=== PATIENT | female | born 1990 | race Caucasian/White ===

== ENCOUNTER 2018-12-07 09:40 | Emergency (ER) | payer MEDICAID ==
[~2018-12-07] VITALS: Wt 78.9 kg
[~2018-12-07 09:40] MED LIST: IBUP200C11
[2018-12-07 09:43] VITALS: BP 130/78; PULSE 81; RESP 18
[2018-12-07] MEDS ORDERED: KETOROLAC 60 MG INJ IM STA (10:33)
--- NOTE | 2018-12-07 10:44 | ERD ---
ER Documentation Chief Complaint Chief Complaint mcclain x 2 days HPI 28-year-old female year-old coming in today with Chief Complaint: Headache History of Present Illness: Patient coming in today with complaint of headache that started 2 days ago. Patient reporting gradual onset. Quality is pressure. Nonradiating. Severity 6/10. At home use of medications include acetaminophen; last dose 2 days ago. Associated symptoms include photophobia. Patient awake and alert and speaking clear sentences, answering questions appropriately without difficulty. Social History: Patient denies tobacco, alcohol, elicit drug use ROS All systems reviewed and are negative except as per history of present illness. Medications Home Meds Active Scripts Acetaminophen* (Tylenol*) 325 Mg Tablet, 2 TAB PO Q8 PRN for PAIN AND OR ELEVATED TEMP, #20 TAB Prov:ASAD BARAHONA NP 12/07/18 Acetaminophen/Aspirin/Caffeine* (Excedrin*) 1 Tab Tab, 2 TAB PO DAILY for headache, #30 TAB Prov:ASAD BARAHONA NP 12/07/18 Nitrofurantoin Monohyd Macrocr* (Macrobid*) 100 Mg Capsr, 100 MG PO BID for urine infection for 5 Days, CAP Prov:ASAD BARAHONA NP 12/07/18 Reported Medications Ibuprofen* (Advil*) 200 Mg Capsule 07/27/10 Allergies Allergies: Coded Allergies: No Known Drug Allergies (Verified Allergy, Mild, 07/27/10) PMhx/Soc History of Surgery: Yes () Anesthesia Reaction: No Hx Neurological Disorder: No Hx Respiratory Disorders: No Hx Cardiac Disorders: No Hx Psychiatric Problems: No Hx Miscellaneous Medical Probl: No Hx Alcohol Use: No Hx Substance Use: No Hx Tobacco Use: No Smoking Status: Never smoker FmHx Family History: coronary disease; No diabetes Physical Exam Vitals Vital Signs Date Temp Pulse Resp B/P (MAP) Pulse Ox O2 O2 Flow FiO2 Time Delivery Rate 12/07/18 98.1 81 18 130/78 99 09:43 (95) Physical Exam Const: No acute distress Head: Atraumatic Eyes: Normal Conjunctiva ENT: Normal External Ears, Nose and Mouth. Neck: Full range of motion. No meningismus. Resp: Clear to auscultation bilaterally Cardio: Regular rate and rhythm, no murmurs Abd: Soft, non tender, non distended. Normal bowel sounds Skin: No petechiae or rashes Back: No midline or flank tenderness Ext: No cyanosis, or edema Neur: Awake and alert, patient speaking in clear sentences, neuro exam unremarkable Psych: Normal Mood and Affect Results 24 hrs Laboratory Tests Test 12/07/18 10:40 12/07/18 10:43 Urine Color YELLOW Urine Clarity CLOUDY Urine pH 6.0 Urine Specific [place] 1.021 Urine Ketones NEGATIVE mg/dL Urine Nitrite NEGATIVE mg/dL Urine Bilirubin NEGATIVE mg/dL Urine Urobilinogen 1+ mg/dL Urine Leukocyte Esterase TRACE Saira/ul Urine Microscopic RBC 4 /HPF Urine Microscopic WBC 6 /HPF Urine Squamous Epithelial Cells FEW /HPF Urine Bacteria FEW /HPF Urine Mucus FEW /HPF Urine Hemoglobin 1+ mg/dL Urine Glucose NEGATIVE mg/dL Urine Total Protein NEGATIVE mg/dl POC Beta HCG, Qualitative NEGATIVE Current Medications Medications Dose Sig/Antony Start Time Status Last (Trade) Ordered Route PRN Stop Time Admin Dose Reason Admin Ketorolac 60 mg ONCE STAT 12/07/18 DC 12/07/18 Tromethamine IM 10:33 11:01 (Toradol) 12/07/18 10:35 12.5 mg ONCE ONCE 12/07/18 DC 12/07/18 Diphenhydrami PO 11:00 11:00 ne HCl 12/07/18 11:01 (Benadryl Liquid Cup) 8 mg ONCE ONCE 12/07/18 DC 12/07/18 Dexamethasone IM 11:00 11:00 (Decadron) 12/07/18 11:01 Procedures/MDM ED course includes a thorough examination and history. ED course includes labs; urinalysis and POC hCG. ED course includes medications; Toradol and diphenhydramine for headache; dexamethasone for migraine rebound prevention. Low suspicion for life-threatening medical emergency or gastrointestinal/genitourinary/neurological emergency requires hospitalization or immediate intervention. Neuro exam unremarkable. No risk factors for stro ke. Otherwise healthy patient presenting with constellation of symptoms likely representing uncomplicated headache and urinary tract infection as characterized by history, physical exam findings. Positive leukocyte esterase, positive WBCs, positive bacteria. Upon reevaluation patient reports complaining of dysuria and frequency for the past couple days; we will give Macrobid for urinary tract infection. No respiratory distress, otherwise relatively well appearing and nontoxic. Patient educated on diagnoses, prescriptions (acetaminophen and Excedrin for headache), follow-up care, return precautions. Strict return precautions given for worsening condition; questions answered discharge. Disposition for discharge with followup in 2 days with PCP/clinic. Departure Diagnosis: Primary Impression: UTI (urinary tract infection) Urinary tract infection type: site unspecified Hematuria presence: without hematuria Qualified Codes: N39.0 - Urinary tract infection, site not specified Additional Impression: Headache Headache type: unspecified Headache chronicity pattern: unspecified pattern Intractability: intractable Qualified Codes: R51 - Headache Condition: Stable ASAD BARAHONA NP Dec 07, 2018 10:44
[2018-12-07] MEDS ORDERED: DIPHENHYDRAMINE 2.5 MG/ML 5ML CUP PO ONE (11:00)
[2018-12-07] MEDS ORDERED: DEXAMETHASONE 10 MG/ML 1 ML INJ IM ONE (11:00)
[2018-12-07] MEDS ORDERED: EXCED PO (11:14)
[2018-12-07] MEDS ORDERED: ACET325T33 PO (11:14)
[2018-12-07] MEDS ORDERED: NITR-58 PO (11:14)
== END 2018-12-07 12:10 | disposition home or self-care (01) ==
LOC: FTE 09:40
DX: N39.0 Urinary tract infection, site not specified (principal)
CPT/HCPCS: 81001; 81025; 96372; J1100; J1885; Z7502; Z7610